=== PATIENT | female | born 1995 | race Two or more races ===

== ENCOUNTER 2020-02-28 11:36 | Observation (INO) | payer MEDICAID, OTHER ==
[~2020-02-28] VITALS: Ht 175.3 cm; Wt 127.0 kg
[2020-02-28 11:46] VITALS: BP 138/70
[2020-02-28] MEDS ORDERED: PREN-96 PO (12:56)
[2020-02-28 13:39] LABS: Amphetamine Screen, Urine NEGATIVE (NEGATIVE); Barbiturate Scree,Urine NEGATIVE (NEGATIVE); Benzodiazephine Screen, Urine NEGATIVE (NEGATIVE); Cannabinoid Screen, Urine POSITIVE (NEGATIVE); Cocaine Screen, Urine NEGATIVE (NEGATIVE); Opiate Scree,Urine NEGATIVE (NEGATIVE); Phencyclidine Screen, Urine NEGATIVE (NEGATIVE)
== END 2020-02-28 13:40 | disposition home or self-care (01) | DRG 566 ==
LOC: ER 11:36 → LDRP 12:05
PROVIDERS: ADMIT Specialist; ATTEND Specialist
DX: O26.893 Other specified pregnancy related conditions, third trimester (principal); R10.30 Lower abdominal pain, unspecified; Z3A.31 31 weeks gestation of pregnancy; W18.39XA Other fall on same level, initial encounter; Y93.79 Activity, other specified sports and athletics; Y92.34 Swimming pool (public) as the place of occurrence of the external cause; Y99.8 Other external cause status
CPT/HCPCS: 59025; 76805; 80307; 81002; G0378